=== PATIENT | male | born 1960 | race Caucasian/White ===

== ENCOUNTER 2018-08-19 07:37 | Emergency (ER) | payer BC, OTHER ==
[2018-08-19 07:52] VITALS: BP 136/92; PULSE 84; TEMP 98.5; BMI 24.4
--- NOTE | 2018-08-19 08:21 | PDOC ---
History of Present Illness - General Chief Complaint: Injury Stated Complaint: Injury Time Seen by Provider: 08/19/18 08:20 History Source: Patient Exam Limitations: No Limitations - History of Present Illness Initial Comments: 08/19/18 08:21 Slipped and fell on ice one week ago landing on left elbow, with healing but then while at work yesterday jerked and pulled his left elbow causing a reinjury and swelling. Denies numbness or tingling to fingers, no other injury. Occurred: reports: last week Severity: reports: mild, moderate Pain Location: reports: upper extremity (left elbow) Loss of Consciousness: no loss of consciousness Associated Symptoms (Fall): denies symptoms Past History - Travel Traveled outside of the country in the last 30 days: No Close contact w/someone who was outside of country & ill: No - Past Medical History Allergies/Adverse Reactions: Allergies Allergy/AdvReac Type Severity Reaction Status Date / Time Penicillins Allergy Unknown Verified 08/19/18 07:48 Home Medications: Ambulatory Orders Atorvastatin Ca [Lipitor -] 20 mg PO DAILY 06/09/13 Naproxen [Naprosyn -] 500 mg PO BID #30 tablet 08/19/18 COPD: No Hypercholesterolemia: Yes - Suicide/Smoking/Psychosocial Hx Smoking History: Never smoked Have you smoked in the past 12 months: No Number of Cigarettes Smoked Daily: 20 Information on smoking cessation initiated: No Hx Alcohol Use: No Drug/Substance Use Hx: No Substance Use Type: Alcohol Review of Systems - Review of Systems Able to Perform ROS?: Yes Is the patient limited Turkmen proficient: Yes Constitutional: Yes: Symptoms Reported, See HPI. No: Fever, Malaise HEENTM: No: Symptoms Reported Respiratory: No: Symptoms reported Musculoskeletal: Yes: Symptoms Reported, See HPI, Joint Swelling, Joint Stiffness All Other Systems: Reviewed and Negative *Physical Exam - Vital Signs Last Vital Signs Temp Pulse Resp BP Pulse Ox 98.5 F 84 16 136/92 100 08/19/18 07:48 08/19/18 07:48 08/19/18 07:48 08/19/18 07:48 08/19/18 07:48 - Physical Exam General Appearance: Yes: Nourished, Appropriately Dressed, Apparent Distress, Mild Distress HEENT: positive: MEGAN, Normal ENT Inspection, TMs Normal, Pharynx Normal Neck: positive: Supple. negative: Tender Musculoskeletal: negative: Normal Inspection (swelling without heat or significant tenderness to left olecranon/bursa. Range of motion is intact and able to supinate and pronate at wrist but has tenderness to the lateral aspect of left distal humerus. Strong flexion and extension, strong grasp, neurovascular intact to fingers.) Extremity: positive: Normal Capillary Refill Integumentary: positive: Normal Color Neurologic: positive: needle setter II-XII NML intact, Fully Oriented, Alert, Normal Response, Motor Strength 5/5 Moderate Sedation - Procedure Monitoring Vital Signs: Procedure Monitoring Vital Signs Temperature 98.5 F 08/19/18 07:48 Pulse Rate 84 08/19/18 07:48 Respiratory Rate 16 08/19/18 07:48 Blood Pressure 136/92 08/19/18 07:48 O2 Sat by Pulse Oximetry (%) 100 08/19/18 07:48 ED Treatment Course - RADIOLOGY Radiology Studies Ordered: Category Date Time Status ELBOW-LEFT [RAD] Stat Radiology 08/19/18 08:20 Ordered Progress Note - Progress Note Progress Note: X-ray shows multiple osteophytes with an avulsion appearance to proximal ulna, probable site of an avulsion injury sling provided, and instructed to follow-up with orthopedist for return to work *DC/Admit/Observation/Transfer Diagnosis at time of Disposition: Sprain of elbow, left Qualifiers: Encounter type: initial encounter Qualified Code(s): S53.402A - Unspecified sprain of left elbow, initial encounter - Discharge Dispostion Disposition: HOME Condition at time of disposition: Stable Decision to Admit order: No - Prescriptions Prescriptions: Naproxen [Naprosyn -] 500 mg PO BID #30 tablet - Referrals Referrals: Edwar Robledo MD [Primary Care Provider] - Kenn White MD [Staff Physician] - - Patient Instructions Printed Discharge Instructions: DI for Elbow Sprain Additional Instructions: Rest, ice to area on and off for 15 minutes 4-6 times a day Avoid heavy lifting or exercise until pain and swelling is resolved or until further directed Keep area highly elevated to reduce swelling Use splints/Russ wrap as directed Followup with orthopedist in one to 2 days if not improving, if significantly improved may wait one week for followup with orthopedist May use Naprosyn 1500 milligrams tablet every 12 hours as needed for pain - Post Discharge Activity Forms/Work/School Notes: Back to Work
== END 2018-08-19 09:10 | disposition home or self-care (01) ==
LOC: JERFT 07:37
DX: S53.492A Other sprain of left elbow, initial encounter (principal); X50.9XXA Other and unspecified overexertion or strenuous movements or postures, initial encounter; Y93.89 Activity, other specified; Y92.69 Other specified industrial and construction area as the place of occurrence of the external cause; Y99.0 Civilian activity done for income or pay
CPT/HCPCS: 73070-TC-LT-FY; 99281-25

== ENCOUNTER 2025-02-18 06:17 | Day surgery (SDC) | payer OTHER ==
[2025-02-09 15:54] VITALS: BMI 24.9
[2025-02-18 10:05] VITALS: TEMP 98.6
[2025-02-18 10:38] VITALS: BP 136/90; PULSE 74; RESP 19
== END 2025-02-18 10:54 | disposition home or self-care (01) ==
LOC: JASU-ENDO 06:17
PROVIDERS: ATTEND Internal Medicine Gastroenterology
PROC: 0DBN8ZX Excision of Sigmoid Colon, Via Natural or Artificial Opening Endoscopic, Diagnostic (ICD-10-PCS; principal; 2025-02-18 08:30)
DX: Z12.11 Encounter for screening for malignant neoplasm of colon (principal); D12.5 Benign neoplasm of sigmoid colon; Z86.0100 Personal history of colon polyps, unspecified
CPT/HCPCS: 88305-TC